=== PATIENT | female | born 1950 | race Caucasian/White ===

== ENCOUNTER 2021-07-16 11:00 | Emergency (ER) | payer OTHER ==
[2021-07-16] MEDS ORDERED: ACETAMINOPHEN 1000 MG/100 ML VIAL IVPB ONE (11:20)
[2021-07-16 11:31] VITALS: BP 132/76; PULSE 90; TEMP 99; BMI 20.3
[2021-07-16] MEDS ORDERED: ACETAMINOPHEN INJECTION 100 ML IVPB ONE (11:35)
[2021-07-16 12:31] LABS: ALBUMIN 3.4 g/dl (3.4-5.0); BILIRUBIN,TOTAL 0.7 mg/dl (0.2-1); CALCIUM 8.4 mg/dl (8.5-10); CREATININE 0.5 mg/dl (0.55-1.3); TOT PROT 5.6 g/dl (6.4-8.2)
[2021-07-16] MEDS ORDERED: PROPOFOL 200 MG/20 ML VIAL IVPUSH ONE (13:11)
[2021-07-16] MEDS ORDERED: PROPOFOL 20 ML ONE (13:24)
== END 2021-07-16 14:56 | disposition home or self-care (01) ==
LOC: FER 11:00
PROC: 3E0333Z Introduction of Anti-inflammatory into Peripheral Vein, Percutaneous Approach (ICD-10-PCS; principal; 2021-07-16)
PROC: 3E033GC Introduction of Other Therapeutic Substance into Peripheral Vein, Percutaneous Approach (ICD-10-PCS; 2021-07-16)
DX: S73.004A Unspecified dislocation of right hip, initial encounter (principal); X50.1XXA Overexertion from prolonged static or awkward postures, initial encounter
CPT/HCPCS: 36415; 72170-TC-FY; 73502-TC-RT-FY; 80053; 93005; 99285-25